=== PATIENT | female | born 1980 | race Caucasian/White ===

== ENCOUNTER 2016-11-06 14:50 | Emergency (ER) | payer OTHER ==
[2016-11-06 15:02] VITALS: BP 136/85
--- NOTE | 2016-11-06 16:04 | UC ---
Shoulder Pain HPI - HPI Summary HPI Summary: 35 yo female with the acute onset of right trapezius pain about a week ago while at work seen at [facility] have gotten worse right trapezius pain/right rhomboid pain/right deltoid pain numbness and tingling down right arm to index and middle finger has seen her chiropracter 3 x this week minimal improvement with motrin - History of Current Complaint Chief Complaint: UCUpperExtremity Stated Complaint: RIGHT SHLD/NECK/ARM PAIN Time Seen by Provider: 11/06/16 15:49 Hx Obtained From: Patient Hx Last Menstrual Period: end september Onset/Duration: Sudden Onset Timing: Constant Severity Initially: Mild Severity Currently: Moderate Pain Intensity: 7 Pain Scale Used: 0-10 Numeric Character: Dull, Aching, Throbbing, Spasmodic Aggravating Factor(s): Movement, Lifting Alleviating Factor(s): Rest Associated Signs And Symptoms: Positive: Numbness/Tingling Related History: Occupational Injury, Dominant Hand Left - Allergies/Home Medications Allergies/Adverse Reactions: Allergies Allergy/AdvReac Type Severity Reaction Status Date / Time Erythromycin Allergy Hives Verified 11/06/16 15:02 Flu Virus Vaccine Allergy Shortness Verified 11/06/16 15:02 of Breath shrimp Allergy Unknown Uncoded 11/06/16 15:02 Reaction Details Home Medications: Home Medications Cetirizine* [ZyrTEC 10 MG TAB*] 10 mg PO DAILY 11/06/16 [History Confirmed 11/06] DULoxetine DR CAP* [Cymbalta CAP*] 30 mg PO BEDTIME 11/06/16 [History Confirmed 11/06/16] Multivitamins/Minerals TAB* [Thera M Plus TAB*] 1 tab PO DAILY 11/06/16 [ History Confirmed 11/06/16] Omeprazole CAP* [Prilosec CAP* 20 MG] 20 mg PO DAILY 11/06/16 [History Confirmed 11/06/16] PMH/Surg Hx/FS Hx/Imm Hx Previously Healthy: Yes GI/ History: Gastroesophageal Reflux - Surgical History Surgical History: Yes Surgery Procedure, Year, and Place: SI joint fusion 2016. T&A. Hysteroscopy. [place] teeth - Family History Known Family History: Positive: Hypertension - Social History Alcohol Use: Rare Substance Use Type: None Smoking Status (MU): Never Smoked Tobacco Review of Systems Constitutional: Negative Skin: Negative Eyes: Negative ENT: Negative Respiratory: Negative Cardiovascular: Negative Gastrointestinal: Negative Genitourinary: Negative Motor: Negative Neurovascular: Negative Musculoskeletal: Arthralgia, Myalgia Neurological: Negative Psychological: Negative All Other Systems Reviewed And Are Negative: Yes Physical Exam Triage Information Reviewed: Yes Appearance: Well-Appearing, No Pain Distress, Well-Nourished Vital Signs: Initial Vital Signs Temp 99.6 F 11/06/16 14:57 Pulse 82 11/06/16 14:57 Resp 14 11/06/16 14:57 BP 136/85 11/06/16 14:57 Pulse Ox 98 11/06/16 14:57 Vital Signs Reviewed: Yes Eyes: Positive: Conjunctiva Clear ENT: Positive: Hearing grossly normal. Negative: Nasal congestion, Nasal drainage, Trismus, Muffled/hoarse voice Neck: Positive: Supple, Tenderness @ - right trepezius Respiratory: Positive: Lungs clear, Normal breath sounds, No respiratory distress Cardiovascular: Positive: RRR, No Murmur Musculoskeletal: Positive: ROM Limited @ - right shoulder pain when abducting > 90 degrees Neurological: Positive: Alert Psychological Exam: Normal Skin Exam: Normal Shoulder Course/Dx - Course Course Of Treatment: c-s- straightening - Differential Dx/Diagnosis Provider Diagnoses: right trapezius and rhomboid strain. cervical strain. right cervical radiculopathy Discharge - Discharge Plan Condition: Stable Disposition: HOME Prescriptions: Cyclobenzaprine TAB* [Flexeril TAB*] 5 - 10 mg PO TID PRN #21 tab PRN Reason: Spasms HYDROcodone/ACETAMIN 5-325 MG* [[place] 5-325 TAB*] 1 tab PO Q4H PRN #10 tab MDD 2 PRN Reason: Pain Patient Education Materials: Muscle Strain (ED), Cervical Radiculopathy (ED) Referrals: Yolanda LEIGH,Nati Fuller [Primary Care Provider] - Additional Instructions: follow up with [facility] as planned continue ibuprofen
--- NOTE | 2016-11-06 16:28 | RAD ---
INDICATION: Right-sided radiculopathy. COMPARISON: There are no prior studies available for comparison. TECHNIQUE: 5 views of the cervical spine were obtained including lateral, oblique, AP, open-mouth odontoid views. FINDINGS: C1-C7 are visualized. There is stranding of the cervical spine. The vertebra are otherwise in normal alignment. No prevertebral soft tissue swelling or fracture is seen. Disc spaces appear maintained. Neural foramen appear patent bilaterally. IMPRESSION: STRAIGHTENING OF THE CERVICAL SPINE, OTHERWISE UNREMARKABLE STUDY.
== END 2016-11-06 16:52 | disposition home or self-care (01) ==
LOC: UCCORT 14:50
DX: S46.811A Strain of other muscles, fascia and tendons at shoulder and upper arm level, right arm, initial encounter (principal); S16.1XXA Strain of muscle, fascia and tendon at neck level, initial encounter; M54.12 Radiculopathy, cervical region; K21.9 Gastro-esophageal reflux disease without esophagitis; X58.XXXA Exposure to other specified factors, initial encounter; Y92.9 Unspecified place or not applicable; Z88.1 Allergy status to other antibiotic agents
CPT/HCPCS: 72050; 99203; G0463

== ENCOUNTER 2017-04-02 07:25 | Emergency (ER) | payer BC, OTHER ==
[2017-04-02 07:39] VITALS: BP 129/81
--- NOTE | 2017-04-02 07:56 | UC ---
Neck Pain HPI - HPI Summary HPI Summary: Per inspector crystal "yesterday pt was combing her hair and had sharp pain R side of neck. Neck remains stiff today. has taken flexeril, ibuprofen, used hot/cold packs as well as her TENS unit with no relief. " She is here with her . hard for her to turn or move her head to the right. has taken ibuprofen 800mgs and tylenola dn left over cyclobenzaprine (almost out and requests more) w/ o any relief. no numbing or tingling into her arm. no weakness. - History of Current Complaint Chief Complaint: UCGeneralIllness Stated Complaint: NECK PAIN Time Seen by Provider: 04/02/17 07:27 Hx Last Menstrual Period: 2 weeks ago - Allergies/Home Medications Allergies/Adverse Reactions: Allergies Allergy/AdvReac Type Severity Reaction Status Date / Time Erythromycin Allergy Hives Verified 04/02/17 07:33 Flu Virus Vaccine Allergy Shortness Verified 04/02/17 07:33 of Breath shrimp Allergy Unknown Uncoded 04/02/17 07:33 Reaction Details PMH/Surg Hx/FS Hx/Imm Hx Previously Healthy: Yes - Surgical History Surgical History: Yes Surgery Procedure, Year, and Place: SI joint fusion 2016. T&A. Hysteroscopy. [place] teeth - Family History Known Family History: Positive: Hypertension - Social History Alcohol Use: Rare Substance Use Type: None Smoking Status (MU): Never Smoked Tobacco - Immunization History Most Recent Influenza Vaccination: current for Review Of Systems Constitutional: Positive: Negative Skin: Positive: Negative Eyes: Positive: Negative ENT: Positive: Negative Respiratory: Positive: Negative Cardiovascular: Positive: Negative Gastrointestinal: Positive: Negative Genitourinary: Positive: Negative Musculoskeletal: Positive: Other: - rt neck - see above Neurological: Positive: Negative Psychological: Positive: Negative All Other Systems Reviewed And Are Negative: No Physical Exam Triage Information Reviewed: Yes Appearance: Well-Nourished - very pleasant, Pain Distress Vital Signs: Initial Vital Signs Temp 97.7 F 04/02/17 07:26 Pulse 64 04/02/17 07:26 Resp 18 04/02/17 07:26 BP 129/81 04/02/17 07:26 Pulse Ox 100 04/02/17 07:26 Vital Signs Reviewed: Yes Eye Exam: Normal ENT: Positive: Pharynx normal Dental Exam: Normal Neck: Positive: Supple, No Lymphadenopathy, Other: - no midline c-spine tenderness. tender to rt paraspinals. limited ROM to right, Rt arm + 2 B/T/BR reflex and equal on left. Respiratory: Positive: Lungs clear, Normal breath sounds, No respiratory distress, No accessory muscle use Cardiovascular Exam: Normal Cardiovascular: Positive: RRR, No Murmur, Pulses Normal Abdomen Description: Positive: Nontender, Soft Musculoskeletal Exam: Normal Neurological Exam: Normal Psychological Exam: Normal Skin Exam: Normal Neck Pain Course/Dx - Course Course Of Treatment: ISTOP Reference #: [id number]. d/c ibuprofen, use meloxicam instead. Rx for more flexiril given - Differential Dx/Diagnosis Differential Dx/HQI/PQRI: Sprain, Strain, Torticollis Provider Diagnoses: torticollis Discharge - Discharge Plan Condition: Stable Disposition: HOME Prescriptions: Cyclobenzaprine (NF) [Cyclobenzaprine 5 MG (NF)] 5 mg PO TID PRN #21 tab PRN Reason: Pain Meloxicam [Mobic] 15 mg PO DAILY PRN #30 tab PRN Reason: Pain Patient Education Materials: Spasmodic Torticollis (ED) Referrals: Yolanda LEIGH,Nati Fuller [Primary Care Provider] - Additional Instructions: The combination of flexiril & duloxetine can cause what is called seratonin syndrome. Please watch for any symptoms such as confusion, agitation, heart racing, feeling very warm, increased sweating. If these develop, stop the flexiril. Follow up with your PCP in 2-3 days of symptoms persist.
== END 2017-04-02 08:17 | disposition home or self-care (01) ==
LOC: UCCORT 07:25
DX: M43.6 Torticollis (principal)
CPT/HCPCS: 99212; G0463